=== PATIENT | female | born 1960 | race Caucasian/White ===

== ENCOUNTER 2025-03-07 02:36 | Emergency (ER) | payer OTHER ==
[~2025-03-07] VITALS: Ht 165.1 cm; Wt 70.3 kg
[~2025-03-07 02:36] MED LIST: Z.0.PRILOSEC20 MG PO; Z.0.ZOLOFT25 MG PO
[2025-03-07] MEDS: CYCLOBENZAPRINE HCL 10 MG TAB PO ONE (03:32)
[2025-03-07] MEDS: KETOROLAC TROMETHAMINE 60 MG/2 ML VIAL IM ONE (03:32)
[2025-03-07] MEDS: HYDROCODONE/APAP 5MG-325MG TAB PO ONE (03:32)
[2025-03-07] MEDS ORDERED: HYDROCODON-ACE1 EA11 PO (04:28)
[2025-03-07] MEDS ORDERED: CYCLOBENZAPRINE5 MG PO (04:28)
[2025-03-07 04:40] VITALS: PULSE 68; RESP 15; TEMP 97.7
[2025-03-07 04:45] VITALS: BP 105/64; PULSE 68; RESP 15; TEMP 97.7; O2SAT 96
== END 2025-03-07 04:48 | disposition home or self-care (01) ==
LOC: FSED 03:06
DX: M54.50 Low back pain, unspecified (principal); M62.830 Muscle spasm of back; X50.0XXA Overexertion from strenuous movement or load, initial encounter; Y92.89 Other specified places as the place of occurrence of the external cause; K90.0 Celiac disease
CPT/HCPCS: 96372; 99283; J1885